=== PATIENT | female | born 1960 | race Caucasian/White ===

== ENCOUNTER 2016-08-30 09:20 | Emergency (ER) | payer OTHER ==
[~2016-08-30] VITALS: Ht 170.2 cm; Wt 77.1 kg
[~2016-08-30 09:20] MED LIST: ADDERALL20 MG PO; ALBUTEROL0.09 MG/A1 INH; ALPRAZOLAM1 MG PO; AMOXIL500 MG PO; CYMBALTA 30 MG30 MG PO; ROBITUSSIN W/CO10 ML PO; SEROQUEL 100MG100 MG PO; TESSALON PERLE100 MG PO; TOPAMAX 100MG100 MG PO; ZIPRASIDONE 60 MG PO; ZITHROMAX250 MG PO
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
[2016-08-30] MEDS ORDERED: XANAX1 M1 PO (10:19)
[2016-08-30] MEDS ORDERED: DULOXETINE HCL60 MG PO (10:20)
[2016-08-30] MEDS ORDERED: ZOLPIDEM TARTRA10 M1 PO (10:21)
[2016-08-30] MEDS ORDERED: NEXIUM40 M1 PO (10:21)
[2016-08-30 10:29] LABS: ABSOLUTE BASOPHIL COUNT 0.1 /CUMM (0.0-0.2); ABSOLUTE EOSINOPHIL COUNT 0.2 /CUMM (0.0-0.7); ABSOLUTE LYMPH COUNT 2.3 /CUMM (1.2-3.4); ABSOLUTE MONOCYTE COUNT 0.4 /CUMM (0.10-0.60); BASOPHIL % 0.5 % (0.0-2.0); EOSINOPHIL % 1.7 % (0-5); HEMATOCRIT 35.7 % (37-47); MEAN CORPUSCULAR HGB 29.6 PG (27.0-31.0); MEAN CORPUSCULAR HGB CONC 34.3 G/DL (33.0-37.0); MEAN CORPUSCULAR VOLUME 86.4 FL (81.0-99.0); MEAN PLATELET VOLUME 8.7 FL (7.4-10.4); PLATELET COUNT 267 /CUMM (130-400); RBC DISTRIBUTION WIDTH 13.7 % (11.5-14.5); RED BLOOD CELL CT 4.13 /CUMM (4.20-5.40)
[2016-08-30 11:49] VITALS: BP 102/59
--- NOTE | 2016-08-30 13:00 | CT SCAN REPORT ---
EXAMINATION: CT UPPER EXTREMITY WITH CONTRAST, RIGHT CLINICAL INFORMATION: Deep soft tissue infection or abscess right antecubital region. IV drug abuse COMPARISON: None TECHNIQUE: Contiguous axial CT slices following intravenous administration of 95 mL Optiray 320 intravenous contrast. Multiplanar reformatted images. DLP: 580.41 mGy-cm FINDINGS: Complex fluid collection with peripheral enhancement noted in the antecubital fossa subcutaneous tissues (series 4 image 54 and series 300 image 39) measuring approximately 2.5 x 2.5 x 3.8 cm. There is suggestion of internal septation. Hounsfield units are slightly higher than simple fluid. Peripheral enhancement also involves the adjacent brachialis and brachioradialis (series 4 image 54 and image 62) There is stranding and edema of the adjacent surrounding subcutaneous tissues. There is abnormal wall thickness of the overlying skin. Small amount of fluid and edema noted in the deep subcutaneous tissues surrounding the elbow musculature (series 4 image 40). Osseous structures appear unremarkable. IMPRESSION: 1. Complex peripheral enhancing fluid collection compatible with abscess formation within the subcutaneous tissues antecubital fossa measuring 2.5 x 3.8 cm. 2. Edema and enhancement of the adjacent brachialis and brachioradialis. 3. Edema and fluid in the subcutaneous tissues throughout the elbow. Overlying skin thickening.
[2016-08-30] MEDS ORDERED: CLEOCIN HCL300 M1 PO (13:36)
[2016-08-30] MEDS ORDERED: INDOMETHACIN50 M1 PO (13:36)
== END 2016-08-30 13:42 ==
LOC: ERH 09:20
PROVIDERS: Emergency Medicine
DX: L02.413 Cutaneous abscess of right upper limb (principal)
CPT/HCPCS: 87040; 96374; 96375; J0131

== ENCOUNTER 2016-08-31 11:58 | Emergency (ER) | payer OTHER ==
[~2016-08-31] VITALS: Ht 170.2 cm; Wt 77.1 kg
[~2016-08-31 11:58] MED LIST changes: +CLEOCIN HCL300 M1 PO; +DULOXETINE HCL60 MG PO; +INDOMETHACIN50 M1 PO; +NEXIUM40 M1 PO; +XANAX1 M1 PO; +ZOLPIDEM TARTRA10 M1 PO
[2016-08-31 12:01] VITALS: BP 145/87
--- NOTE | 2016-08-31 12:06 | ED ANIMAL BITE/WOUND CHECK ---
History of Present Illness General Chief Complaint: Suture Removal/Wound Recheck Stated Complaint: WOUND CHECK Source: patient, old records Exam Limitations: no limitations Vital Signs & Intake/Output Vital Signs & Intake/Output Vital Signs Date Time Temp Pulse Resp B/P B/P Pulse O2 O2 Flow FiO2 Mean Ox Delivery Rate 08/31 1201 97.3 83 16 145/87 95 Room Air Allergies Coded Allergies: NO KNOWN ALLERGIES (08/30/16) Reconcile Medications Alprazolam (Xanax) 1 MG TABLET 1 TAB PO TIDPRN PRN ANXIETY (Reported) Clindamycin HCl (Cleocin HCl) 300 MG CAPSULE 1 CAP PO Q6 SKIN INFECTION Duloxetine HCl 60 MG CAPSULE.DR 1 CAP PO DAILY MENTAL HEALTH (Reported) Esomeprazole (Nexium) 40 MG CAPSULE.DR 1 CAP PO DAILY GI (Reported) Indomethacin 50 MG CAPSULE 1 CAP PO TID PRN ARM PAIN with food Zolpidem Tartrate 10 MG TABLET 1 TAB PO QPM SLEEP (Reported) Triage Note: PT HERE FOR WOUND CHECK ABCESS RIGHT ARM Triage Nurses Notes Reviewed? yes HPI: Patient is a 56-year-old female presents for wound check of an abscess to her right antecubital fossa. Patient was seen in the emergency department yesterday morning had blood work, CT scan, blood cultures and incision and drainage to the area. Patient was placed on clindamycin. Patient was instructed to return for recheck. Patient reports that the swelling and firmness to the area has been improving. The area of redness has remained consistent. Patient reports that she accidentally pulled the packing out when she was changing the dressing. Pain was severe yesterday. Patient has been taking indomethacin and pain is currently minimal. Patient denies fevers or decreased range of motion of her arm. (ROYCE HUMPHREYS,DIANE) Past History Travel History Traveled to [place] past 21 day No Medical History Any Pertinent Medical History? 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 No (DIANE MADISON) Review of Systems Review of Systems Constitutional: Denies: chills, fever. Respiratory: Reports: no symptoms. Cardiovascular: Reports: no symptoms. GI: Reports: no symptoms. Musculoskeletal: Reports: see HPI. Skin: Reports: see HPI. Neurological/Psychological: Reports: anxiety, depressed. Hematologic/Endocrine: Reports: no symptoms. Immunologic/Allergic: Reports: no symptoms. (DIANE MADISON) Physical Exam Physical Exam General Appearance: well developed/nourished, alert, awake Head: atraumatic, normal appearance Eyes: Bilateral: normal appearance, PERRL, EOMI. Ears, Nose, Throat: hearing grossly normal Neck: normal inspection, full range of motion Respiratory: no respiratory distress Peripheral Pulses: 2+ radial (R) Back: normal inspection, normal range of motion Extremities: 8 cm x 8 cm area of cellulitis to the right antecubital fossa. No fluctuance. 1.5 cm incision to the center of the cellulitis, no discharge from the incision site. Neurologic/Psych: no motor/sensory deficits, awake, alert, oriented x 3, normal gait, normal mood/affect Skin: See extremities exam (DIANE MADISON) Progress Differential Diagnosis: abscess, cellulitis, joint infection, bacteremia, necrotizing fasciitis Plan of Care: Pain and swelling have improved per patient. Area does not appear to require further incision. Patient afebrile, nontoxic-appearing. Blood cultures have not resulted at time of exam. Discussed with patient that she will be contacted if the blood cultures come back positive. Patient appears stable for discharge. Instructed to return immediately if redness spreading, fevers, or worsening symptoms. (DIANE MADISON) Departure Departure Time of Disposition: 1216 Disposition: HOME OR SELF CARE Condition: Stable Clinical Impression Primary Impression: Encounter for recheck of abscess following incision and drainage Referrals: PATIENT HAS NO PRIMARY CARE DR (PCP/Family) Additional Instructions: Warm compresses to the area for 10 minutes 4-5 times a day. Continue taking the clindamycin as previously directed. Return to the emergency department if redness spreading, fevers, increasing pain, or worsening of symptoms. Departure Forms: Customer Survey General Discharge Information (DIANE MADISON) PA/EXECUTIVE RECRUITER Co-Sign Statement Statement: ED Attending supervision documentation- [] I saw and evaluated the patient. I have also reviewed all the pertinent lab results and diagnostic results. I agree with the findings and the plan of care as documented in the PA's/EXECUTIVE RECRUITER's documentation. [X] I have reviewed the ED Record and agree with the PA's/EXECUTIVE RECRUITER's documentation. [] Additions or exceptions (if any) to the PAs/EXECUTIVE RECRUITER's note and plan are summarized below: [] (TERESA PAGAN,ANTONIETTA Flowers)
== END 2016-08-31 12:27 ==
LOC: ERH 11:58
DX: Z48.01 Encounter for change or removal of surgical wound dressing (principal)
CPT/HCPCS: 99281